=== PATIENT | male | born 1990 | race Caucasian/White ===

== ENCOUNTER → 2019-07-26 | Day surgery (SDC) | payer OTHER ==
[~2019-07-26] MED LIST: ACETAMINOPHEN 1000 MG/100 ML IV ONE; CEFAZOLIN SOD 1 GM/NS 50ML 50 ML IV ONE; DEXAMETHASONE SOD PHOS INJ 4 MG/ML VIAL ONE; FENTANYL CITRATE/PF 100MCG/2 ML INJ ONE; HYDROMORPHONE 1MG/1ML INJ ONE; KETOROLAC TROMETHAMINE 30 MG/ML VIAL ONE; LIDOCAINE HCL 2% LOCAL 20 ML VIAL ONE; LIDOCAINE HCL 2% LOCAL INJ 5 ML SDV VIAL INJ ONE; MEPERIDINE HCL INJ 25 MG/ML VIAL ONE; METOCLOPRAMIDE HCL 10 MG/2ML VIAL ONE; MIDAZOLAM HCL 2 MG/2 ML VIAL ONE; ONDANSETRON HCL INJ 2MG/ML 2ML 2 MG/ML VIAL ONE; PROPOFOL IV EMULSION 10 MG/ML 20 ML VIAL ONE; ROPIVACAINE 0.5% 5 MG/ML 30 ML SDV ONE; SEVOFLURANE INHAL SOLN 250 ML PEN BTL ONE
[2019-07-26 13:27] VITALS: BP 106/69
--- NOTE | 2019-07-26 14:03 | Operative Report ---
DATE OF PROCEDURE: 07/26/2019 SURGEON: Rosalio aHllman MD TURN LASTER: Austin Davila, certified PA. PREOPERATIVE DIAGNOSIS: Right knee anterior cruciate ligament tear, medial meniscal tear. POSTOPERATIVE DIAGNOSIS: Right knee anterior cruciate ligament tear, medial meniscal tear. PROCEDURE: Right knee arthroscopy, medial meniscal repair, anterior cruciate ligament reconstruction. INDICATIONS: The patient is a 28-year-old gentleman who sustained an acute tear of his right knee anterior cruciate ligament and medial meniscus. The findings and options have been discussed. The patient would like to proceed with surgical stabilization and repair. The risks and benefits were explained. He stated he understood and wished to proceed. PROCEDURE IN DETAIL: The patient was brought to the operating room and placed under general anesthetic. He received a regional block and prophylactic antibiotics in the holding area. His right lower extremity was prepped and draped in a sterile manner. A preoperative time-out was performed. The extremity was exsanguinated and a proximal tourniquet was inflated to 300 mmHg. Standard arthroscopy portal incisions were established. The knee was insufflated with sterile saline and systematically inspected. The suprapatellar pouch and patellofemoral groove were unremarkable. There was a moderate hemosiderin stained joint effusion. The medial compartment was inspected and probed. There was a peripheral tear of the posterior horn of the medial meniscus. The anterior cruciate ligament was noted to be acutely torn. The lateral compartment was unremarkable. Attention was directed initially towards the medial meniscus. The peripheral margin of the tear was gently abraded with a shaver. A [employer] all-inside Fast-Fix meniscal repair system was used. Suture anchors were placed across the tear and secured. The tear was reprobed and noted to be hooked stable. Attention was then directed towards the ACL reconstruction. The remnant of the previous ACL was debrided. Notchplasty was performed with a bone-cutting shaver. An extra articular alignment guide was used to place a guide pin into the footprint of the previous ACL. The positioning of this pin was also referenced off the posterior border of the anterior horn of lateral meniscus. A tibialis anterior allograft had been prepared on the back table. This was sized at a tight 10 mm in diameter. A 10 mm reamer was then placed over the guide pin. A 5 mm bhwv-hve-ake guide was then used to place a guide pin for the femoral tunnel at roughly the 9 to 10 o'clock position in the posterior femoral tunnel. This was brought out the anterior femoral cortex and soft tissue. This was over-reamed with a 10 mm acorn reamer to a distance of about 40 mm. The 3.5 mm Endobutton drill was then placed over the guide pin through the lateral femoral cortex. The entire length of the femoral tunnel was 45 mm. I elected to use a 20 mm Endobutton that would bury 25 mm of graft into the femoral tunnel. The 20 mm Endobutton was attached to the allograft and the graft was passed through the tunnels. The Endobutton was deployed over the anterolateral femoral cortex. The knee was cycled multiple times with tension applied to the graft. A 20 mm x 10 mm in diameter bioabsorbable interference screw was then placed into the tibial tunnel. The graft was inspected and probed. There was no anterior impingement and the graft was under appropriate tension through flexion and extension. The patient is quite thin. No additional graft fixation was felt to be necessary and would be unattractive due to the limited amount of tissue covering his anterior superior medial leg. The excessive portion of the allograft was resected. The incisions were all closed. A sterile bandage and a Job brace were applied. The patient was extubated and transported to the recovery room in stable condition. There was no blood loss and all needle and sponge counts were correct. Rosalio Hallman MD DR/NIKIA /[id number]
== END | disposition home or self-care (01) ==
LOC: OR 07:16
PROVIDERS: ATTEND Specialist
DX: S83.511A Sprain of anterior cruciate ligament of right knee, initial encounter (principal); S83.231A Complex tear of medial meniscus, current injury, right knee, initial encounter; W18.39XA Other fall on same level, initial encounter; Y93.02 Activity, running; Y92.89 Other specified places as the place of occurrence of the external cause; Y99.8 Other external cause status; Z01.812 Encounter for preprocedural laboratory examination; Z11.59 Encounter for screening for other viral diseases
CPT/HCPCS: 29882; 29888; 87635; C1713 ×3; C1893; J0131; J0690; J1100; J1170; J1885; J2001 ×2; J2175; J2250; J2405; J2704; J2765; J2795; J3010